=== PATIENT | female | born 1965 | race Caucasian/White ===

== ENCOUNTER 2020-04-12 08:38 | Outpatient (CLI) | payer BC, SELFPAY ==
--- NOTE | 2020-04-12 08:44 | USCV_ITS ---
Heather Bowles Age: 54 Gender: F : 1965 Exam Date: 04/12/2020 09:05 Ordering Phys: Christina Ocampo APN Technologist: Chon Jeffrey Exam Location: [facility] [place]: HISTORY OF DVT PROCEDURES: Venous duplex imaging was performed in only the left lower extremity. The following venous structures were evaluated: common femoral vein, profunda vein, proximal portion of the greater saphenous vein, superficial femoral vein, and the popliteal vein. In addition, the posterior tibial and peroneal trunk were evaluated. Serial compression, augmentation maneuvers, and spectral Doppler flow evaluation were performed. The femoral vein distally could not be visualized at this time. FINDINGS: Normal 2-D Doppler and augmentation and compressibility throughout the lower extremity venous structures. Additional imaging through the proximal calf veins also reveals no thrombus. Limited evaluation of the greater saphenous vein is patent with no thrombus.. CONCLUSIONS No evidence of left lower extremity DVT. Eligio Arenas MD (Electronically Signed) Final Date: 12 April 2020 10:25 S
== END 2020-04-12 08:39 | disposition home or self-care (01) ==
PROVIDERS: PCP Nurse Practitioner; Visit Provider Nurse Practitioner
DX: Z86.718 Personal history of other venous thrombosis and embolism (principal)
CPT/HCPCS: 93971